=== PATIENT | male | born 1975 | race African-American/Black ===

== ENCOUNTER 2023-04-01 23:28 | Emergency (ER) | payer MEDICAID ==
[~2023-04-01] VITALS: Ht 188 cm; Wt 90.0 kg
[2023-04-01 23:35] VITALS: O2SAT 99
[2023-04-02] MEDS ORDERED: KETOROLAC 30MG/ML VIAL IM ONE (00:15)
[2023-04-02] MEDS ORDERED: ACETAMINOPHEN 325MG TABLET PO ONE (04:45)
[2023-04-02 05:01] LABS: HEMATOCRIT. 46.8 % (42.0-52.0); HEMOGLOBIN. 15.5 g/dL (14.0-18.0); MEAN CORPUSCULAR HEMOGLOBIN 31.2 pg (28.0-32.0); MEAN CORPUSCULAR VOLUME 94.4 fL (80.0-94.0); MEAN PLATELET VOLUME 8.3 fl (7.4-10.4); PLATELET 275 x1000/uL (130-400); RED BLOOD CELL COUNT 4.96 mill/uL (4.7-6.1); RED CELL DISTRIBUTION WIDTH 14.3 % (11.6-14.6)
[2023-04-02 05:10] LABS: CHLORIDE 107 mEq/L (98-107)
[2023-04-02] MEDS ORDERED: NITROGLYCERIN 0.4MG TABLET SL SL PRN (06:45)
[2023-04-02] MEDS ORDERED: IPRATROPIUM/ALBUTEROL 0.5-3(2.5)MG/3ML NEB NEB PRN (06:45)
[2023-04-02] MEDS ORDERED: ACETAMINOPHEN 650MG SUPP PR PRN ×2 (06:45)
[2023-04-02] MEDS ORDERED: DEXT 5%/LACTATED RINGERS 1,000 ML IV SCH (06:45)
[2023-04-02] MEDS ORDERED: DEXAMETHASONE 4MG/ML 1ML VIAL IV ONE (06:45)
[2023-04-02] MEDS ORDERED: MORPHINE SULFATE 2 MG/ML CPJ (NOT FOR IM USE) IV PRN (06:45)
[2023-04-02] MEDS ORDERED: LEVETIRACETAM 500MG PREMIX 100 ML IV ONE (06:45)
[2023-04-02] MEDS ORDERED: NA PHOS,M-B/NA PHOS,DI-BA ENEMA 118ML PR PRN (06:45)
[2023-04-02] MEDS ORDERED: ONDANSETRON HCL 4MG/2ML INJ IV PRN (06:45)
[2023-04-02 07:25] LABS: T4 FREE 1.12 ng/dL (0.76-1.46)
[2023-04-02] MEDS ORDERED: THROMBIN (BOVINE) 5000 UNITS/VIAL TOP ONE (07:42)
[2023-04-02] MEDS ORDERED: LIDOCAINE HCL 1%/EPI 1:200,000 30 ML VIAL ONE (07:43)
[2023-04-02] MEDS ORDERED: GENTAMICIN SULF 40MG/ML 2ML VIAL ONE (07:43)
[2023-04-02] MEDS ORDERED: BACITRACIN 15GM TUBE TOP ONE (07:43)
[2023-04-02 08:00] VITALS: BP 108/52; PULSE 82; RESP 11; TEMP 98.7
[2023-04-02] MEDS ORDERED: LEVETIRACETAM 500MG PREMIX 100 ML IV SCH (09:00)
[2023-04-02] MEDS ORDERED: PANTOPRAZOLE SODIUM 40 MG/VIAL IV SCH (09:00)
[2023-04-02 09:50] LABS: PLATELET ESTIMATE NORMAL
[2023-04-02] MEDS ORDERED: DEXAMETHASONE 10 MG/ML VIAL IV SCH (12:00)
== END 2023-04-02 10:23 | disposition left against medical advice (07) ==
LOC: ER 23:28 → EDBEDREQSVC 04-02 05:26 → EDBEDREQ 04-02 05:26 → EDBEDREQSVC 04-02 06:46 → CANBEDREQ 04-02 10:05 → ER 04-02 10:23
DX: R51.9 Headache, unspecified (principal); M54.2 Cervicalgia
CPT/HCPCS: 99284; 80053; 83036; 84439; 84443; 85025; 36415; 70450; C9113; Z7610 ×4; J1580; J1953; J3490